=== PATIENT | female | born 1955 | race Caucasian/White ===

== ENCOUNTER → 2017-08-28 10:42 | Outpatient (CLI) | payer OTHER, SELFPAY ==
[2017-08-28 12:20] LABS: Alanine Aminotransferase 13 IU/L (9-52); Albumin 4.5 g/dL (3.5-5.0); Albumin Globulin Ratio 1.4 (1.0-2.8); Alkaline Phosphatase 85 U/L (38-126); Aspartate Aminotransferase 22 IU/L (14-36); BUN Creatinine Ratio 18.8 (6-22); Bilirubin Total 0.9 mg/dL (0.2-1.3); Blood Urea Nitrogen 15 mg/dL (7-17); Calcium 9.3 mg/dL (8.4-10.2); Carbon Dioxide 28 mmol/L (22-32); Chloride 102 mmol/L (98-107); Estimated Glomerular Filt Rate > 60.0 mL/min (>60); Globulin 3.2 g/dL (1.7-4.1); Glucose 93 mg/dL (80-110); HEMOLYSIS < 15 (0-50); Potassium 4.2 mmol/L (3.4-5.1); Sodium 141 mmol/L (137-145); Total Protein 7.7 g/dL (6.3-8.2)
[2017-08-28 12:35] LABS: Free T4, Direct Thyroxine 1.74 ng/dL (0.78-2.19)
[2017-08-28 12:49] LABS: Thyroid Stimulating Hormone 0.15 uIU/mL (0.47-4.68)
== END ==
PROVIDERS: Visit Provider Physician Assistant
DX: I10 Essential (primary) hypertension (principal); E78.2 Mixed hyperlipidemia; E03.9 Hypothyroidism, unspecified
CPT/HCPCS: 36415; 80053; 84439; 84443

== ENCOUNTER → 2017-10-03 09:24 | Outpatient (CLI) | payer OTHER, SELFPAY ==
--- NOTE | 2017-10-03 | DI.MG.S_ITS ---
BILATERAL DIGITAL SCREENING MAMMOGRAM 3D/2D WITH CAD: 10/03/2017 CLINICAL: Routine screening. Family history of breast cancer. Comparison is made to exams dated: 08/29/2016 mammogram, 08/11/2015 mammogram, and 08/13/2013 mammogram - [facility]. There are scattered fibroglandular elements in both breasts. Current study was also evaluated with a Computer Aided Detection (CAD) system. No significant masses, calcifications, or other findings are seen in either breast. There has been no significant interval change. IMPRESSION: NEGATIVE There is no mammographic evidence of malignancy. A 1 year screening mammogram is recommended. This exam was interpreted at Station ID: [id number]. NOTE: For mammograms, a report in lay terms will be sent to the patient. Approximately 15% of breast malignancies will not be visualized mammographically. In the management of a palpable breast mass, a negative mammogram must not discourage biopsy of a clinically suspicious lesion. Electronically Signed By: Yulissa dong/kameron:10/03/2017 11:06:46 letter sent: Normal Exam ACR BI-RADS Category 1: Negative 3341F
== END ==
PROVIDERS: Visit Provider Physician Assistant
DX: Z12.31 Encounter for screening mammogram for malignant neoplasm of breast (principal); Z80.3 Family history of malignant neoplasm of breast
CPT/HCPCS: 77063; 77067

== ENCOUNTER → 2017-10-14 11:20 | Outpatient (CLI) | payer OTHER, SELFPAY ==
[2017-10-14 13:16] LABS: Thyroid Stimulating Hormone 2.17 uIU/mL (0.47-4.68)
== END ==
PROVIDERS: Visit Provider Physician Assistant
DX: E03.9 Hypothyroidism, unspecified (principal); R79.89 Other specified abnormal findings of blood chemistry
CPT/HCPCS: 36415; 84443

== ENCOUNTER → 2018-12-01 09:32 | Outpatient (CLI) | payer OTHER, MEDICAID, SELFPAY ==
[2018-12-01 11:10] LABS: Albumin 4.6 g/dL (3.5-5.0); Albumin Globulin Ratio 1.4 (1.0-2.8); Alkaline Phosphatase 88 U/L (38-126); Aspartate Aminotransferase 24 IU/L (14-36); BUN Creatinine Ratio 17.5 (6-22); Blood Urea Nitrogen 14 mg/dL (7-17); Calcium 9.2 mg/dL (8.4-10.2); Carbon Dioxide 29 mmol/L (22-32); Chloride 102 mmol/L (98-107); Cholesterol 258 mg/dL (140-199); Creatinine Urine Random 233.1 mg/dL; Estimated Glomerular Filt Rate > 60.0 mL/min (>60); Globulin 3.2 g/dL (1.7-4.1); Glucose 94 mg/dL (80-110); HDL Cholesterol 48 mg/dL (40-60); HEMOLYSIS < 15 (0-50); LDL Cholesterol Calculated 175 mg/dL (<100); Potassium 4.3 mmol/L (3.4-5.1); Sodium 140 mmol/L (137-145); Total Protein 7.8 g/dL (6.3-8.2); Triglycerides 174 mg/dL (35-150)
[2018-12-01 11:14] LABS: Microalbumi Creatinin Ratio Ur 10.2 ug/mg CR (<30); Microalbumin Urine Random 2.4 mg/dL (0-1.6)
[2018-12-01 11:20] LABS: Alanine Aminotransferase 13 IU/L (9-52)
[2018-12-01 11:37] LABS: Thyroid Stimulating Hormone 7.72 uIU/mL (0.47-4.68)
== END ==
PROVIDERS: PCP Physician Assistant; Visit Provider Physician Assistant
DX: E03.9 Hypothyroidism, unspecified (principal); E78.2 Mixed hyperlipidemia; R03.0 Elevated blood-pressure reading, without diagnosis of hypertension
CPT/HCPCS: 36415; 80053; 80061; 82043; 82570; 84443

== ENCOUNTER → 2018-12-18 09:36 | Outpatient (CLI) | payer OTHER, MEDICAID, SELFPAY ==
--- NOTE | 2018-12-18 09:38 | DI.MG.S_ITS ---
BILATERAL DIGITAL SCREENING MAMMOGRAM 3D/2D WITH CAD: 12/18/2018 CLINICAL: Annual screening mammogram. Comparison is made to exams dated: 10/03/2017 mammogram, 08/29/2016 mammogram, 08/11/2015 mammogram, 08/13/2013 mammogram, 05/09/2012 mammogram, and 01/09/2011 mammogram - [facility]. There are scattered fibroglandular elements in both breasts. Current study was also evaluated with a Computer Aided Detection (CAD) system. There is an oval asymmetry in the right breast posterior depth superior region seen on the mediolateral oblique view only. There is a partially imaged irregular asymmetry in the left breast posterior depth medial region seen on the craniocaudal view only. This may represent accessory chest muscle tissue but is incompletely imaged and not seen on prior comparison exams. No other significant masses or calcifications are seen in either breast. IMPRESSION: INCOMPLETE: NEEDS ADDITIONAL IMAGING EVALUATION 1) The oval asymmetry in the right breast posterior depth superior region seen on the mediolateral oblique view only is indeterminate. Additional views with possible ultrasound are recommended. 2) The irregular asymmetry in the left breast posterior depth medial region seen on the craniocaudal view only is indeterminate. Additional views with possible ultrasound are recommended. This exam was interpreted at Station ID: [id number]. NOTE: For mammograms, a report in lay terms will be sent to the patient. Approximately 15% of breast malignancies will not be visualized mammographically. In the management of a palpable breast mass, a negative mammogram must not discourage biopsy of a clinically suspicious lesion. Electronically Signed By: Vishal Diego M.D. ecl/:12/24/2018 09:49:45 letter sent: Additional Imaging Needed ACR BI-RADS Category 0: Incomplete 3340F
== END ==
PROVIDERS: PCP Physician Assistant; Visit Provider Physician Assistant
DX: Z12.31 Encounter for screening mammogram for malignant neoplasm of breast (principal)
CPT/HCPCS: 77063; 77067

== ENCOUNTER → 2019-01-14 13:09 | Outpatient (CLI) | payer OTHER, MEDICAID, SELFPAY ==
--- NOTE | 2019-01-14 13:10 | DI.MG.S_ITS ---
BILATERAL DIGITAL DIAGNOSTIC MAMMOGRAM 3D/2D: 01/14/2019 CLINICAL: Additional evaluation requested from prior study. Comparison is made to exams dated: 12/18/2018 mammogram, 10/03/2017 mammogram, and 08/29/2016 mammogram - [facility]. There are scattered fibroglandular elements in both breasts. There is an oval asymmetry in the right breast posterior depth superior region seen on the mediolateral oblique view only which on today's additional imaging demonstrated a central fatty hilum and feeding vessel, consistent with a benign lymph node. The asymmetry in the left breast posterior depth medial region seen on the craniocaudal view only is no longer seen. This is consistent with summation artifact. No other significant masses or calcifications are seen in either breast. IMPRESSION: The oval asymmetry in the right breast posterior depth superior region is consistent with a benign lymph node. The previously described posterior depth left breast craniocaudal-only view asymmetry disperses with additional views and is consistent with summation artifact. There is no mammographic evidence of malignancy. A 1 year screening mammogram is recommended. This exam was interpreted at Station ID: [id number]. NOTE: For mammograms, a report in lay terms will be sent to the patient. Approximately 15% of breast malignancies will not be visualized mammographically. In the management of a palpable breast mass, a negative mammogram must not discourage biopsy of a clinically suspicious lesion. Electronically Signed By: Walter Naranjo M.D. aty/:01/14/2019 14:23:58 letter sent: Normal Exam ACR BI-RADS Category 2: Benign Finding(s) 3342F
--- NOTE | 2019-01-14 13:10 | DI.RAD.S_ITS ---
PROCEDURE: XR SHOULDER RT MIN 2V INDICATIONS: Pain with adduction in anterior shoulder - hx of fall >10yrs TECHNIQUE: 3 views of the shoulder were acquired. COMPARISON: [facility], , SHOULDER MINIMUM 2VIEW RIGHT, 11/25/2008, 14:15. FINDINGS: Bones: No fractures or dislocations. No suspicious bony lesions. Visualized ribs appear intact. Soft tissues: No suspicious soft tissue calcifications. 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 Dictated by: Jamel Hernandez M.D. on 01/14/2019 at 13:29 Approved by: Jamel Hernandez M.D. on 01/14/2019 at 13:29
== END ==
PROVIDERS: PCP Physician Assistant; Visit Provider Physician Assistant
DX: R92.8 Other abnormal and inconclusive findings on diagnostic imaging of breast (principal); N64.89 Other specified disorders of breast; M25.511 Pain in right shoulder; M19.011 Primary osteoarthritis, right shoulder
CPT/HCPCS: 73030; 77066; G0279

== ENCOUNTER → 2019-01-20 10:19 | Outpatient (CLI) | payer OTHER, MEDICAID, SELFPAY ==
[2019-01-20 11:20] LABS: Cholesterol 228 mg/dL (140-199); HDL Cholesterol 35 mg/dL (40-60); LDL Cholesterol Calculated 139 mg/dL (<100); Triglycerides 269 mg/dL (35-150)
[2019-01-20 12:03] LABS: Thyroid Stimulating Hormone 1.76 uIU/mL (0.47-4.68)
== END ==
PROVIDERS: PCP Physician Assistant; Visit Provider Physician Assistant
DX: E03.9 Hypothyroidism, unspecified (principal); E78.2 Mixed hyperlipidemia; R79.89 Other specified abnormal findings of blood chemistry
CPT/HCPCS: 36415; 80061; 84443

== ENCOUNTER → 2019-04-06 09:05 | Outpatient (CLI) | payer OTHER, MEDICAID, SELFPAY ==
--- NOTE | 2019-04-06 09:09 | DI.RAD.S_ITS ---
PROCEDURE: FL BARIUM SWALLOW INDICATIONS: Dysphonia COMPARISON: None. FINDINGS: Function: There is decreased esophageal peristalsis. Delayed esophageal clearance No elicited gastroesophageal reflux. Morphology: Air-contrast images demonstrate normal mucosal morphology. Single contrast views show no esophageal strictures, extrinsic mass effects, or diverticula. Limited images of the stomach demonstrate normal appearance. IMPRESSION: Esophageal dysmotility Dictated by: Manuel Pulido M.D. on 04/06/2019 at 10:23 Approved by: Manuel Pulido M.D. on 04/06/2019 at 10:24
== END ==
PROVIDERS: PCP Physician Assistant; Referring Provider Otolaryngology; Visit Provider Otolaryngology
DX: R49.0 Dysphonia (principal); R13.19 Other dysphagia; K22.4 Dyskinesia of esophagus
CPT/HCPCS: 74220

== ENCOUNTER → 2019-09-22 13:50 | Outpatient (CLI) | payer OTHER, MEDICAID, SELFPAY ==
[2019-09-22 15:54] LABS: Free T4, Direct Thyroxine 1.37 ng/dL (0.78-2.19)
[2019-09-22 16:08] LABS: Thyroid Stimulating Hormone 1.04 uIU/mL (0.47-4.68)
== END ==
PROVIDERS: PCP Nurse Practitioner Family; Referring Provider Nurse Practitioner Family; Visit Provider Nurse Practitioner Family
DX: E03.9 Hypothyroidism, unspecified (principal)
CPT/HCPCS: 36415; 84439; 84443

== ENCOUNTER → 2020-12-30 08:32 | Outpatient (CLI) | payer OTHER, MEDICAID, SELFPAY ==
[2020-12-30 09:07] LABS: Hematocrit 41.3 % (36-46); Hemoglobin 13.8 g/dL (12.0-16.0); Mean Corpuscular HGB Conc 33.3 % (30-36); Mean Corpuscular Hemoglobin 29.6 PG (26-34); Platelet Count 248 X10^3/uL (150-400); Red Blood Cell Count 4.64 X10^6/uL (4.0-5.2); Red Cell Distribution Width 13.6 % (11.6-14.8); White Blood Cell Count 4.4 X10^3/uL (4.5-11.0)
[2020-12-30 09:47] LABS: Alanine Aminotransferase 11 IU/L (<35); Albumin 4.5 g/dL (3.5-5.0); Albumin Globulin Ratio 1.4 (1.0-2.8); Alkaline Phosphatase 99 U/L (38-126); Aspartate Aminotransferase 28 IU/L (14-36); Bilirubin Total 0.9 mg/dL (0.2-1.3); Blood Urea Nitrogen 17 mg/dL (7-17); Carbon Dioxide 29 mmol/L (22-32); Chloride 102 mmol/L (98-107); Cholesterol 249 mg/dL (140-199); Estimated Glomerular Filt Rate > 60.0 mL/min (>60); Globulin 3.2 g/dL (1.7-4.1); Glucose 97 mg/dL (80-110); HDL Cholesterol 49 mg/dL (40-60); HEMOLYSIS < 15 (0-50); LDL Cholesterol Calculated 170 mg/dL (<100); Potassium 4.1 mmol/L (3.4-5.1); Sodium 139 mmol/L (137-145); Total Protein 7.7 g/dL (6.3-8.2); Triglycerides 152 mg/dL (35-150)
[2020-12-30 10:19] LABS: Thyroid Stimulating Hormone 0.819 uIU/mL (0.47-4.68)
== END ==
PROVIDERS: PCP Nurse Practitioner Family; Referring Provider Nurse Practitioner Family; Visit Provider Nurse Practitioner Family
DX: E03.9 Hypothyroidism, unspecified (principal); E78.2 Mixed hyperlipidemia
CPT/HCPCS: 36415; 80053; 80061; 84443; 85027

== ENCOUNTER → 2021-05-03 07:49 | Outpatient (CLI) | payer OTHER, MEDICAID, SELFPAY ==
[2021-05-03 08:49] LABS: Cholesterol 203 mg/dL (140-199); HDL Cholesterol 52 mg/dL (40-60); LDL Cholesterol Calculated 127 mg/dL (<100); Triglycerides 122 mg/dL (35-150)
== END ==
PROVIDERS: PCP Nurse Practitioner Family; Referring Provider Nurse Practitioner Family; Visit Provider Nurse Practitioner Family
DX: E78.2 Mixed hyperlipidemia (principal)
CPT/HCPCS: 36415; 80061

== ENCOUNTER → 2021-11-06 07:48 | Outpatient (CLI) | payer MEDICARE, OTHER, SELFPAY ==
[2021-11-06 08:02] LABS: Hematocrit 42.5 % (36-46); Hemoglobin 14.3 g/dL (12.0-16.0); Mean Corpuscular HGB Conc 33.7 % (30-36); Mean Corpuscular Volume 89.3 fL (80-100); Platelet Count 230 X10^3/uL (150-400); Red Blood Cell Count 4.76 X10^6/uL (4.0-5.2); Red Cell Distribution Width 13.1 % (11.6-14.8); White Blood Cell Count 3.7 X10^3/uL (4.5-11.0)
[2021-11-06 08:18] LABS: Alanine Aminotransferase 9 IU/L (<35); Albumin 4.5 g/dL (3.5-5.0); Albumin Globulin Ratio 1.3 (1.0-2.8); Alkaline Phosphatase 81 U/L (38-126); Aspartate Aminotransferase 22 IU/L (14-36); Bilirubin Total 1.2 mg/dL (0.2-1.3); Blood Urea Nitrogen 16 mg/dL (7-17); Calcium 9.1 mg/dL (8.4-10.2); Carbon Dioxide 28 mmol/L (22-32); Chloride 101 mmol/L (98-107); Cholesterol 246 mg/dL (140-199); Estimated Glomerular Filt Rate > 60 mL/min (>60); Globulin 3.4 g/dL (1.7-4.1); Glucose 110 mg/dL (80-110); HDL Cholesterol 56 mg/dL (40-60); HEMOLYSIS < 15 (0-50); LDL Cholesterol Calculated 161 mg/dL (<100); Potassium 3.8 mmol/L (3.4-5.1); Sodium 139 mmol/L (137-145); Total Protein 7.9 g/dL (6.3-8.2); Triglycerides 145 mg/dL (35-150)
[2021-11-06 10:29] LABS: Free T4, Direct Thyroxine 1.75 ng/dL (0.78-2.19)
[2021-11-06 10:43] LABS: Thyroid Stimulating Hormone 0.826 uIU/mL (0.47-4.68)
== END ==
PROVIDERS: PCP Nurse Practitioner Family; Referring Provider Nurse Practitioner Family; Visit Provider Nurse Practitioner Family
DX: E03.9 Hypothyroidism, unspecified (principal); E78.2 Mixed hyperlipidemia; Z00.00 Encounter for general adult medical examination without abnormal findings
CPT/HCPCS: 36415; 80053; 80061; 84439; 84443; 85027

== ENCOUNTER → 2021-11-13 15:04 | Outpatient (CLI) | payer MEDICARE, OTHER, SELFPAY ==
--- NOTE | 2021-11-13 15:06 | DI.MG.S_ITS ---
BILATERAL DIGITAL SCREENING MAMMOGRAM 3D/2D WITH CAD: 11/13/2021 CLINICAL: Routine screening. Comparison is made to exams dated: 01/14/2019 mammogram, 12/18/2018 mammogram, and 10/03/2017 mammogram - [facility]. Both breasts are heterogeneously dense, which may obscure small masses (category c / 51-75% glandular tissue). Current study was also evaluated with a Computer Aided Detection (CAD) system. There is a benign calcification in the right breast. No significant masses, calcifications, or other findings are seen in either breast. There has been no significant interval change. IMPRESSION: BENIGN There is no mammographic evidence of malignancy. A 1 year screening mammogram is recommended. Based on the Tyrer Cuzick model (a risk assessment model) the patient's lifetime risk is 11.0% and her 10 year risk is 5.3%. According to the ACR, ACS, and NCCN guidelines, an annual breast MRI exam along with mammogram is recommended if the patient's lifetime risk is 20% or greater. This exam was interpreted at Station ID: [id number]. NOTE: For mammograms, a report in lay terms will be sent to the patient. Approximately 15% of breast malignancies will not be visualized mammographically. In the management of a palpable breast mass, a negative mammogram must not discourage biopsy of a clinically suspicious lesion. Electronically Signed By: Abner michelle/kameron:11/14/2021 07:58:11 letter sent: Normal Exam ACR BI-RADS Category 2: Benign Finding(s) 3342F
== END ==
PROVIDERS: PCP Nurse Practitioner; Referring Provider Nurse Practitioner; Visit Provider Nurse Practitioner
DX: Z12.31 Encounter for screening mammogram for malignant neoplasm of breast (principal)
CPT/HCPCS: 77063; 77067

== ENCOUNTER → 2022-08-31 07:38 | Outpatient (CLI) | payer MEDICARE, OTHER, SELFPAY ==
[2022-08-31 08:14] LABS: Add Manual Diff / Slide Review NO; Basophils Absolute Auto 0 /uL (0-100); Basophils Percent Auto 0.7 % (0-2); Eosinophils Absolute Auto 0 /uL (0-450); Eosinophils Percent Auto 0.6 % (2-4); Hematocrit 41.9 % (36-46); Hemoglobin 14.2 g/dL (12.0-16.0); Lymphocytes Absolute Auto 1000 /uL (1100-4500); Lymphocytes Percent Auto 26.2 % (25-40); Mean Corpuscular Hemoglobin 30.5 PG (26-34); Mean Corpuscular Volume 89.9 fL (80-100); Monocytes Absolute Auto 300 /uL (0-900); Monocytes Percent Auto 7.4 % (3-14); Neutrophils Absolute Auto 2600 /uL (1500-7000); Neutrophils Percent Auto 65.1 % (50-75); Platelet Count 261 X10^3/uL (150-400); Red Blood Cell Count 4.66 X10^6/uL (4.0-5.2)
[2022-08-31 08:44] LABS: Alanine Aminotransferase 12 IU/L (<35); Albumin 4.6 g/dL (3.5-5.0); Albumin Globulin Ratio 1.6 (1.0-2.8); Alkaline Phosphatase 62 U/L (38-126); Aspartate Aminotransferase 23 IU/L (14-36); BUN Creatinine Ratio 20.7 (6-22); Bilirubin Total 1.3 mg/dL (0.2-1.3); Blood Urea Nitrogen 17 mg/dL (7-17); Calcium 9.3 mg/dL (8.4-10.2); Carbon Dioxide 32 mmol/L (22-32); Chloride 99 mmol/L (98-107); Cholesterol 209 mg/dL (140-199); Estimated Glomerular Filt Rate > 60 mL/min (>60); Globulin 2.8 g/dL (1.7-4.1); Glucose 120 mg/dL (80-110); HDL Cholesterol 69 mg/dL (40-60); HEMOLYSIS < 15 (0-50); LDL Cholesterol Calculated 116 mg/dL (<100); Sodium 138 mmol/L (137-145); Total Protein 7.4 g/dL (6.3-8.2); Triglycerides 121 mg/dL (35-150)
[2022-08-31 09:14] LABS: Thyroid Stimulating Hormone 1.36 uIU/mL (0.47-4.68)
[2022-08-31 10:24] LABS: Creatinine Urine Random 58.9 mg/dL
[2022-08-31 10:28] LABS: Microalbumi Creatinin Ratio Ur 45.8 ug/mg CR (<30); Microalbumin Urine Random 2.7 mg/dL (0-1.6)
[2022-09-03 20:49] LABS: Hep C Virus Ab w/Reflex Quant NEGATIVE s/c (NEGATIVE)
== END ==
PROVIDERS: PCP Nurse Practitioner; Referring Provider Nurse Practitioner; Visit Provider Nurse Practitioner
DX: E03.9 Hypothyroidism, unspecified (principal); E78.2 Mixed hyperlipidemia; I10 Essential (primary) hypertension; R41.3 Other amnesia; R68.89 Other general symptoms and signs; Z79.899 Other long term (current) drug therapy; Z11.59 Encounter for screening for other viral diseases
CPT/HCPCS: 36415; 80053; 80061; 82043; 82570; 84443; 85025; 86803

== ENCOUNTER → 2022-09-03 12:13 | Outpatient (CLI) | payer MEDICARE, OTHER, SELFPAY ==
--- NOTE | 2022-09-03 12:14 | DI.CT.S_ITS ---
PROCEDURE: CT ANGIO HEAD AND NECK INDICATIONS: worsening memory troubles TECHNIQUE: Pre-contrast 4.5 mm thick sections acquired from the foramen magnum to the vertex. After the administration of intravenous contrast, 1 mm thick sections acquired from the aortic arch through the [place]. Post-contrast 4.5 mm thick sections then re-acquired from the foramen magnum to the vertex. 3-dimensional qkiimvz-ptkbhcbhd-eabpbwvljl (MIP) and/or volume rendering reformats were acquired of the central intracranial vasculature and neck separately. For radiation dose reduction, the following was used: automated exposure control, adjustment of mA and/or kV according to patient size. COMPARISON: None. FINDINGS: Image quality: Excellent. BRAIN: CSF spaces: Ventricles are normal in size and shape. Basal cisterns are patent. No extra-axial fluid collections. Brain: No midline shift. No intracranial bleeds or masses. May-white matter interface appears intact. Aypa-fb-jcqrbimf global volume loss. Hypoattenuation within the deep and periventricular white matter, nonspecific and likely representing chronic microvascular ischemic change. Skull and face: Calvarium and facial bones appear intact, without suspicious lesions. Orbits appear normal. Sinuses: Sinuses and mastoids are clear. HEAD CT ANGIOGRAPHY: Anterior circulation: Intracranial internal carotid arteries are normal in size and flow. Atherosclerotic vascular calcifications of the bilateral internal carotid arteries. The flow within the paired anterior cerebral arteries is normal and symmetric. The flow within the middle cerebral arteries is normal and symmetric. The anterior communicating artery is seen. No aneurysms are seen. Posterior circulation: Visualized portions of the vertebral arteries demonstrate normal caliber, and join to form a normal appearing basilar artery. Flow within the posterior cerebral arteries is normal and symmetric. No aneurysms are seen. NECK CT ANGIOGRAPHY: Carotid system: Atherosclerotic calcifications of the aortic arch. The great vessels demonstrate a conventional anatomy as they arise from the aortic arch. The origins of the common carotid arteries appear patent. The common carotid arteries demonstrate normal caliber and courses. The bifurcation regions are both widely patent. The internal carotid arteries demonstrate normal calibers with some tortuosity. Posterior circulation: The origins of the vertebral arteries both appear widely patent. 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 The more superior extracranial portions of both vertebral arteries also demonstrate normal courses and calibers. Right dominant vertebral artery. They join to form a normal appearing basilar artery. Soft tissues: Visualized neck soft tissues demonstrate no suspicious abnormalities. Bones: No suspicious bony lesions. Visualized cervical spine appears normally aligned. Straightening of the normal cervical lordosis. Degenerative changes of the cervical spine. IMPRESSION: 1. CT head: No acute intracranial abnormalities. Mild to moderate global volume loss and chronic microvascular ischemic change. 2. CT angiography: Mild atherosclerotic vascular calcifications. No high-grade stenosis, occlusion, aneurysm or AVM. Any quantitative measurements of stenosis were performed using NASCET criteria. Dictated by: Gustavo Landry M.D. on 09/03/2022 at 14:09 Approved by: Gustavo Landry M.D. on 09/03/2022 at 14:17
== END ==
PROVIDERS: PCP Nurse Practitioner; Referring Provider Nurse Practitioner; Visit Provider Nurse Practitioner
DX: I70.0 Atherosclerosis of aorta (principal); R41.3 Other amnesia; R68.89 Other general symptoms and signs
CPT/HCPCS: 70496; 70498; Q9967

== ENCOUNTER 2022-09-28 13:25 | Day surgery (SDC) | payer MEDICARE, OTHER, SELFPAY ==
--- NOTE | 2022-09-28 | PATH_ITS ---
[facility] Accession Number: [id number] No. of containers..03 Tissue . 01 Material submitted: . PART A: cecum - LARGE SESSILE CECAL POLYP PART B: cecum - SMALL CECAL POLYP PART C: colon - ASCENDING POLYP . 01 Diagnosis: A. Cecum, Large Sessile Polyp: Sessile serrated adenoma. . B. Cecum, Small Polyp: Benign lymphoid aggregate. . C. Ascending Colon, Polyp: Sessile serrated adenoma. V 10/10/2022 1726 Local . 01 Electronically signed: . Teetee Braden MD, Pathologist NPI- [id number] . 01 Gross description: . Part A: LARGE SESSILE CECAL POLYP: Received in formalin is 3 fragment(s) of campbell, soft tissue measuring 1.8 x 1.1 x 0.2 cm to 0.7 x 0.6 x 0.2 cm submitted entirely in 1 cassette(s) Part B: SMALL CECAL POLYP: Received in formalin is 1 fragment(s) of campbell, soft tissue measuring 0.3 x 0.3 x 0.2 cm submitted entirely in 1 cassette(s) Part C: ASCENDING POLYP: Received in formalin is 2 fragment(s) of campbell, soft tissue measuring 0.3 x 0.2 x 0.2 cm to 0.1 x 0.1 x 0.1 cm submitted entirely in 1 cassette(s) /AAY 10/04/2022 1049 Local . 01 Pathologist provided ICD-10: D12.0, D12.2 . 01 CPT . 414496, 878783, [id number] Performed at: [facility] [address] [place] [address] [address] [facility], [place], [place] [id number] MD Erik Moreno MD Phone: [phone]
[2022-09-28 13:35] VITALS: BP 156/95; PULSE 112; RESP 17; TEMP 37.1; O2SAT 100; BMI 26.5
[2022-09-28] MEDS: LACTATED RINGERS 1,000 ML 125 ML IV (13:55)
--- NOTE | 2022-09-28 15:15 | P.HP_ITS ---
History of Present Illness History of Present Illness Date Patient Seen: 09/28/22 Time Patient Seen: 15:15 Chief complaint: [facility] Narrative: 67-year-old female who presents today for a colonoscopy. She states her last colonoscopy was about 6 months ago done in [place], she understood there were a few polyps. Her is with her today and he had his done here at [place] on the and therefore, he asked to her get scheduled today. They are Jehovah's witnesses. She has had a colon resection for some sort of cancer around the colon that was done over 10 years ago. The details of the type of polyp and or resection are not clear and she or her do not really know the details. I was able to review a scanned copy of her last colonoscopy report from [facility] in [place]. It was done by Dr. Jason Mann on 03/22/22. There were 4 polyps total that were seen during this exam. There was a 4 mm polyp in the descending colon well as a 2nd 4 mm polyp in the transverse colon. Were significantly however there were 20 mm polyp that was removed in the transverse colon with the technique of endoscopic mucosal resection and a 2nd similar polyp of 24 mm in size that was removed using the same technique in a piecemeal fashion though the endoscopist did feel that he had completely excised it. This is the reason for the recommendation of a six-month follow-up. She endorses no family history of colon cancer and no concerning symptoms. [facility] Medical History Colon polyps (Unknown) Endometriosis (Unknown) Hyperlipemia (Unknown) Hypertension (Unknown) Hypothyroidism (Unknown) Surgical History History of thyroid surgery (Unknown) Status post hysterectomy Family History Father High cholesterol Hypertension Sister Age: 59 Hyperlipidemia Mother Cancer Social History household members: spouse Smoking Status: Never smoker second hand exposure: No alcohol intake: current substance use type: does not use Meds Home Medications and Allergies Home Medications Medication Instructions Recorded Confirmed Type levothyroxine 100 mcg tablet 100 mcg PO DAILY #90 tabs 11/06/21 09/28/22 Rx Allergies Allergy/AdvReac Type Severity Reaction Status Date / Time bartlett Allergy Redness of Verified 09/28/22 13:54 Skin Exam Vital Signs (past 8 hours): - 09/28/22 13:35 Temperature 98.7 F Pulse Rate 112 H Respiratory Rate 17 Blood Pressure 156/95 H Pulse Oximetry 100 Oxygen Delivery Method Room Air Oxygen Delivery Method Room Air Const General: cooperative, healthy appearing and comfortable Nutritional Appearance: thin HENMT Head: normal to inspection Eyes General: appearance normal, both eyes and all related structures Resp Effort & Inspection: normal respiratory effort and able to speak in complete sentences GI Palpation: soft and No tender Extrem General: normal to inspection Assessment & Plan Assessment and plan (1) Sessile serrated polyp of colon: Problem details: X2 of a large size 20 mm and 24 mm. Piecemeal resection using endoscopic mucosal resection on 03/22/2022 Status: Acute Assessment & Plan narrative: Because of the size and number of these polyps as well as the piecemeal resection of the 24 mm polyp in the transverse colon the previous endoscopist recommended 6 month follow-up. The patient's have decided to come to [facility] they felt it was more convenient rather than follow-up with the group in [place]. 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 Today I discussed them risks benefits and alternatives of colonoscopy including but not limited to perforation of the colon and an incomplete exam she fully understands these risks and would like to proceed. Her is at the bedside with her and understands as well.
[2022-09-28 17:13] VITALS: BP 98/55; PULSE 72; RESP 14; TEMP 36.1; O2SAT 96
[2022-09-28 17:18] VITALS: BP 93/61; PULSE 69; RESP 12; O2SAT 97
[2022-09-28 17:24] VITALS: BP 109/72; PULSE 85; RESP 16; O2SAT 100
[2022-09-28 17:28] VITALS: BP 135/85; PULSE 87; RESP 12; TEMP 36.8; O2SAT 100
[2022-09-28 17:41] VITALS: BP 147/90; PULSE 75; RESP 16; O2SAT 99
--- NOTE | 2022-09-28 17:45 | P.OP.COLON_ITS ---
Operative Date/Time/Diagnoses Date of procedure: 09/28/22 Time of procedure: 17:45 Pre-op diagnosis: Follow-up for sessile serrated polyp removal x2 of sizes 20 mm and 24 mm 1 was removed piecemeal 6 months ago at [facility] in [place]. It was recommended that she have a six-month follow-up colonoscopy because of this. Post-op diagnosis: other (Two additional new sessile serrated polyps of similar size is approximately 2 cm both. One was found in the cecum and was completely excised and a 2nd was found in the transverse colon this 1 was not excised.) Procedure & Clinicians Study performed: Colonoscopy and biopsy with endoscopic mucosal resection Same procedure as scheduled: Yes Indications: Sessile serrated polyps of size is 20mm and 24 mm some were excised piecemeal and six-month follow-up was recommended Surgeon: Ela Etienne Procedure Notes Procedure in detail: Patient was taken to the endoscopy suite and placed in a left lateral decubitus position. A time-out was performed. With the help of anesthesiologist c onscious sedation was induced and monitored throughout the case. A digital rectal exam was performed and there were no masses or strictures. There were multiple external hemorrhoids. The colonoscope was introduced into the anal canal and advanced through to the cecum. A photograph of the appendiceal orifice was obtained. The bowel prep was good Quinn bowel prep score of 2, but there was a lot of fibrinous particles that did obscure some of the view. The scope was then withdrawn for a total of 45 minutes. A very small cecal polyp was seen and removed with the biopsy forceps. Before withdrawing completely out of the cecum another large probably at least 2 cm incise polyp was seen in a fold of the cecum. Saline was injected underneath this polyp that was sessile and shape to flattened it out and pump it up in order to that it could be removed with a snare. Photographs before and after the resection were obtained. This was sent to pathology. The scope was then further withdrawn and there was a small approximately 4 mm polyp in the ascending colon that was removed with the biopsy forceps. Further withdrawal revealed 2 large scars encountered in the transverse colon. These were both photographed. Finally there was a 2nd large at least 2 cm sessile polyp seen in the transverse colon; this was photographed and an attempt to snare the area and remove it was made. Least 10 or 15 minutes was spent on this endeavor and was found difficult due to the location of this lesion on a fold just proximal to a curve within the transverse colon. After 15 minutes the scope was withdrawn inadvertently and could not be returned to that site easily after several attempts were then made to return to that site in excess of 30 minutes. Finally, the scope was then withdrawn furthe r leaving this sessile polyp in place. The scope was then retroflexed and a photograph of the internal hemorrhoidal piles was obtained. Findings: polyp(s) (Two large sessile polyps in addition to scars from previously resected similar lesions from 6 months earlier. There was 1 small cecal polyp as well) Specimen(s): other (1. Large sessile cecal polyp 2. Small cecal polyp 3. Ascending polyp. ) Post-procedure Recommendations: Other recommendation(s) (If patient is able to return for c olonoscopy next week I can make a 2nd attempt to remove this polyp. Alternatively I can offer to send her back to [facility] for another colonoscopy as soon as possible.) Disposition: PACU
== END 2022-09-28 18:25 | disposition home or self-care (01) ==
PROVIDERS: PCP Nurse Practitioner; Referring Provider Surgery; Visit Provider Surgery
PROC: 0DJD8ZZ Inspection of Lower Intestinal Tract, Via Natural or Artificial Opening Endoscopic (ICD-10-PCS; CPT 45378; principal; 2022-09-28 14:15)
DX: Z12.11 Encounter for screening for malignant neoplasm of colon (principal); Z86.010 Personal history of colon polyps; K64.4 Residual hemorrhoidal skin tags; D12.2 Benign neoplasm of ascending colon; D12.0 Benign neoplasm of cecum
CPT/HCPCS: 45385; 45381; 45380; J2250; J2704; J3010

== ENCOUNTER → 2023-04-13 08:31 | Outpatient (CLI) | payer MEDICARE, OTHER, SELFPAY ==
[2023-04-13 09:35] LABS: Hemoglobin A1C% w Est Avg Glu 5.5 % (4.0-6.0)
[2023-04-13 09:42] LABS: Alanine Aminotransferase 9 IU/L (<35); Albumin 4.7 g/dL (3.5-5.0); Albumin Globulin Ratio 1.5 (1.0-2.8); Alkaline Phosphatase 55 U/L (38-126); Aspartate Aminotransferase 22 IU/L (14-36); Bilirubin Total 1.3 mg/dL (0.2-1.3); Blood Urea Nitrogen 17 mg/dL (7-17); Calcium 9.4 mg/dL (8.4-10.2); Carbon Dioxide 31 mmol/L (22-32); Chloride 101 mmol/L (98-107); Cholesterol 243 mg/dL (140-199); Estimated Glomerular Filt Rate > 60 mL/min (>60); Globulin 3.2 g/dL (1.7-4.1); Glucose 110 mg/dL (80-110); HDL Cholesterol 64 mg/dL (40-60); HEMOLYSIS < 15 (0-50); LDL Cholesterol Calculated 145 mg/dL (<100); Potassium 3.9 mmol/L (3.4-5.1); Sodium 139 mmol/L (137-145); Total Protein 7.9 g/dL (6.3-8.2); Triglycerides 168 mg/dL (35-150)
[2023-04-13 10:30] LABS: Creatinine Urine Random 86.7 mg/dL
[2023-04-13 10:34] LABS: Microalbumi Creatinin Ratio Ur 124.5 ug/mg CR (<30); Microalbumin Urine Random 10.8 mg/dL (0-1.6)
== END ==
PROVIDERS: PCP Nurse Practitioner; Referring Provider Family Medicine; Visit Provider Family Medicine
DX: R80.9 Proteinuria, unspecified (principal); E78.2 Mixed hyperlipidemia; I10 Essential (primary) hypertension; R73.9 Hyperglycemia, unspecified
CPT/HCPCS: 80053; 80061; 82043; 82570; 83036

== ENCOUNTER → 2023-08-07 11:35 | Outpatient (CLI) | payer MEDICARE, OTHER, SELFPAY ==
--- NOTE | 2023-08-07 11:38 | DI.RAD.S_ITS ---
PROCEDURE: XR HIP W PEL IF DONE LT 2V INDICATIONS: Left hip pain TECHNIQUE: AP pelvis with lateral view(s) of the left hip(s). COMPARISON: None. FINDINGS: Bones: No fractures or dislocations. Symmetric appearing mild bilateral hip joint osteoarthritis with superior joint space narrowing and subchondral sclerosis. No avascular necrosis of femoral head. Pelvic ring appears intact. No suspicious bony lesions. Degenerative disc disease in visualized lower lumbar spine is seen. Soft tissues: The visualized bowel gas pattern is normal. No suspicious soft tissue calcifications. IMPRESSION: No acute pelvic or hip fracture. No hip dislocation. Symmetric appearing mild bilateral hip joint osteoarthritis. No evidence of avascular necrosis. Dictated by: Peter Negro M.D. on 08/07/2023 at 17:09 Approved by: Peter Negro M.D. on 08/07/2023 at 17:10
--- NOTE | 2023-08-07 11:38 | DI.RAD.S_ITS ---
PROCEDURE: XR FEMUR LT MIN 2V INDICATIONS: left hip leg pain TECHNIQUE: 4 views of the femur were acquired. COMPARISON: None. FINDINGS: Bones: No fractures or dislocations. Left hip joint osteoarthritic changes are seen with joint space narrowing and subchondral sclerosis. No evidence of avascular necrosis of femoral head. No suspicious bony lesions. Soft tissues: No suspicious soft tissue calcifications or masses. IMPRESSION: No left femoral fracture or dislocation. Mild left hip joint osteoarthritis. No evidence of avascular necrosis. No gross soft tissue abnormalities. Dictated by: Peter Negro M.D. on 08/07/2023 at 17:08 Approved by: Peter Negro M.D. on 08/07/2023 at 17:09
[2023-08-07 12:42] LABS: Appearance Urine UA CLEAR; Bilirubin Urine UA NEGATIVE (NEGATIVE); Color Urine UA YELLOW; Glucose Urine UA NEGATIVE (Negative); Ketones Urine UA NEGATIVE (NEGATIVE); Leukocyte Esterase Urine UA NEGATIVE (NEGATIVE); Nitrite Urine UA NEGATIVE (Negative); Occult Blood Urine UA NEGATIVE (Negative); Protein Urine UA TRACE (Negative); Specific Gravity Urine UA 1.025 (1.000-1.035); Urobilinogen Urine UA 0.2 E.U./dL (0.2)
[2023-08-07 12:43] LABS: pH Urine UA 5.5 (4.5-8.0)
[2023-08-07 12:55] LABS: Bacteria Urine Occasional (0-1); Calcium Oxalate Crystals Urine Moderate; Culture Indicated Urine Cult Not Indicated; RBC Urine 0-1/HPF (0-5/HPF); Squamous Epithelial Cell Urine 0-1 /HPF (0-5/HPF); Urine Volume 10mL (spun); WBC Urine 0-1/HPF (0-5/HPF)
== END ==
PROVIDERS: PCP Nurse Practitioner; Referring Provider Nurse Practitioner; Visit Provider Nurse Practitioner
DX: M25.552 Pain in left hip (principal); M79.605 Pain in left leg; R35.0 Frequency of micturition
CPT/HCPCS: 73502; 73552; 81001

== ENCOUNTER → 2023-08-20 09:28 | Outpatient (CLI) | payer MEDICARE, OTHER, SELFPAY ==
--- NOTE | 2023-08-20 09:31 | DI.CT.S_ITS ---
PROCEDURE: CT KIDNEY URETER BLADDER (KUB) INDICATIONS: Nocturia, calcium oxalate crystals on UA TECHNIQUE: Axial sections were acquired from the lung bases to the pubic symphysis. Coronal and sagittal reformats were performed. For radiation dose reduction, the following was used: automated exposure control, adjustment of mA and/or kV according to patient size. COMPARISON: None. FINDINGS: Image quality: Diagnostic. Lower Chest: No significant findings. URINARY: Right Kidney: There is a 5 mm nonobstructing right renal stone measuring approximately 600 Hounsfield units. No hydronephrosis. No perinephric stranding. Right Ureter: No hydroureter. Left Kidney: No stones or hydronephrosis. Left Ureter: No hydroureter. Bladder: Normal wall thickness. No stones. ABDOMEN: Liver: No contour-deforming solid mass. Gallbladder: No radiopaque gallstones or wall thickening. Biliary ducts: No biliary dilation. Pancreas: No ductal dilation. Spleen: Size is within normal limits. Adrenal Glands: No adrenal nodules. Stomach and Bowel: Normal colonic caliber, without significant wall thickening. Surgical clips in the right lower quadrant likely from prior appendectomy. Peritoneum: No abnormal intraperitoneal fluid. No free air. Ventral Wall: There is a fat-containing umbilical hernia without acute inflammation. Abdominal Nodes: No enlarged retroperitoneal or mesenteric lymph nodes. Vessels: Aorta and inferior vena cava are normal in size. PELVIS: Pelvic Organs: Unremarkable. Pelvic Nodes: Unremarkable. Miscellaneous: No inguinal hernias are seen. Bones: Visualized osseous structures appear intact without acute fracture or focal destructive lesion. No acute compression fractures of the imaged spine. Minimal grade 1 anterolisthesis of L5 on S1 likely related to severe bilateral facet arthropathy seen at this level. IMPRESSION: Nonobstructing 5 mm right renal calculus measuring approximately 600 Hounsfield units. Otherwise, no acute abnormalities identified in the abdomen or pelvis. Other chronic findings as above. Dictated by: Walter Naranjo M.D. on 08/20/2023 at 10:29 Approved by: Walter Naranjo M.D. on 08/20/2023 at 11:08
== END ==
PROVIDERS: PCP Nurse Practitioner; Referring Provider Nurse Practitioner; Visit Provider Nurse Practitioner
DX: N20.0 Calculus of kidney (principal); K42.9 Umbilical hernia without obstruction or gangrene; R35.1 Nocturia; R82.998 Other abnormal findings in urine
CPT/HCPCS: 74176

== ENCOUNTER → 2023-08-21 12:18 | Outpatient (CLI) | payer MEDICARE, OTHER, SELFPAY ==
[2023-08-21 13:15] LABS: Appearance Urine UA CLEAR; Bilirubin Urine UA NEGATIVE (NEGATIVE); Color Urine UA YELLOW; Glucose Urine UA NEGATIVE (Negative); Ketones Urine UA NEGATIVE (NEGATIVE); Leukocyte Esterase Urine UA NEGATIVE (NEGATIVE); Nitrite Urine UA NEGATIVE (Negative); Occult Blood Urine UA NEGATIVE (Negative); Protein Urine UA NEGATIVE (Negative); Specific Gravity Urine UA 1.025 (1.000-1.035)
[2023-08-21 13:18] LABS: pH Urine UA 5.5 (4.5-8.0)
[2023-08-21 13:28] LABS: Bacteria Urine Occasional (0-1); Calcium Oxalate Crystals Urine Moderate; Culture Indicated Urine Cult Not Indicated; RBC Urine 0-1/HPF (0-5/HPF); Squamous Epithelial Cell Urine 0-1 /HPF (0-5/HPF); Urine Volume 10mL (spun); WBC Urine 0-1/HPF (0-5/HPF)
== END ==
LOC: LAB 12:20
PROVIDERS: PCP Nurse Practitioner; Referring Provider Nurse Practitioner; Visit Provider Nurse Practitioner
DX: R35.1 Nocturia (principal)
CPT/HCPCS: 81001

== ENCOUNTER → 2023-10-17 15:17 | Outpatient (CLI) | payer MEDICARE, OTHER, SELFPAY ==
--- NOTE | 2023-10-17 15:19 | DI.RAD.S_ITS ---
PROCEDURE: XR KUB INDICATIONS: Follow-up right kidney stones TECHNIQUE: One view of the abdomen acquired. COMPARISON: [facility], CT, CT KIDNEY URETER BLADDER (KUB), 08/20/2023, 9:42. FINDINGS: Surgical changes and devices: Right pelvic clips are present. Bowel: Moderate fecal loading. Stool obscures evaluation. Soft tissues: 4 mm stone projects over the right renal fossa, likely similar to CT. Pelvic calcifications are probably phleboliths. Bones: Degenerative changes IMPRESSION: A 4 mm stone projecting over the right renal fossa, probably similar compared to August CT. Moderate fecal loading, which obscures evaluation Dictated by: Chay Monteiro M.D. on 10/18/2023 at 9:32 Approved by: Chay Monteiro M.D. on 10/18/2023 at 9:33
== END ==
PROVIDERS: PCP Nurse Practitioner; Referring Provider Urology; Visit Provider Urology
DX: N20.0 Calculus of kidney (principal); Z97.8 Presence of other specified devices; R31.29 Other microscopic hematuria
CPT/HCPCS: 51798; 74018; 81002; 99214

== ENCOUNTER → 2023-10-18 16:16 | Outpatient (CLI) | payer MEDICARE, OTHER, SELFPAY ==
[2023-10-18 16:59] LABS: Add Manual Diff / Slide Review NO; Basophils Absolute Auto 0 /uL (0-100); Basophils Percent Auto 0.6 % (0-2); Eosinophils Absolute Auto 100 /uL (0-450); Eosinophils Percent Auto 1.4 % (2-4); Hematocrit 38.1 % (36-46); Hemoglobin 12.7 g/dL (12.0-16.0); Lymphocytes Absolute Auto 1000 /uL (1100-4500); Lymphocytes Percent Auto 21.3 % (25-40); Mean Corpuscular HGB Conc 33.2 % (30-36); Mean Corpuscular Hemoglobin 30.8 PG (26-34); Mean Corpuscular Volume 92.6 fL (80-100); Monocytes Absolute Auto 400 /uL (0-900); Monocytes Percent Auto 9.5 % (3-14); Neutrophils Absolute Auto 3100 /uL (1500-7000); Neutrophils Percent Auto 67.2 % (50-75); Platelet Count 284 X10^3/uL (150-400); Red Blood Cell Count 4.12 X10^6/uL (4.0-5.2); White Blood Cell Count 4.6 X10^3/uL (4.5-11.0)
[2023-10-18 17:40] LABS: Erythrocyte Sedimentation Rate 8 MM/HR (0-20)
[2023-10-18 18:08] LABS: HEMOLYSIS < 15 (0-50); Iron 56 ug/dL (37-170)
[2023-10-18 18:11] LABS: BUN Creatinine Ratio 30.4 (6-22); Blood Urea Nitrogen 24 mg/dL (7-17); C-Reactive Protein Quant < 0.5 mg/dL (<1.0); Calcium 9.4 mg/dL (8.4-10.2); Carbon Dioxide 24 mmol/L (22-32); Chloride 103 mmol/L (98-107); Estimated Glomerular Filt Rate > 60 mL/min (>60); Glucose 101 mg/dL (80-110); HEMOLYSIS < 15 (0-50); Potassium 4.1 mmol/L (3.4-5.1); Sodium 136 mmol/L (137-145)
[2023-10-18 18:19] LABS: Percent Iron Saturation 16 % (15-50); Total Iron Binding Capacity 344 ug/dL (265-497); Transferrin 293 mg/dL (206-381)
[2023-10-18 19:41] LABS: Free T4, Direct Thyroxine 0.72 ng/dL (0.78-2.19)
== END ==
PROVIDERS: PCP Nurse Practitioner; Referring Provider Nurse Practitioner Family; Visit Provider Nurse Practitioner Family
DX: R50.9 Fever, unspecified (principal)
CPT/HCPCS: 36415; 80048; 83540; 83550; 84439; 84443; 85025; 85651; 86140

== ENCOUNTER 2023-11-18 15:43 | Emergency (ER) | payer MEDICARE, OTHER, SELFPAY ==
--- NOTE | 2023-11-18 15:54 | ED.GENADULT ---
HPI - General Adult General Chief complaint: Weakness Stated complaint: Fever, Hallucinations, High BP Time Seen by Provider: 11/18/23 15:54 History of Present Illness HPI narrative: 68-year-old woman with history of dementia, hypothyroidism presumed Parkinson's disease with consultation with Parkinson's specialist in January of this year with progressive confusion, tremor and evening agitation. Has been notes that she has had temperatures in the 99-100 range every evening. Last night she had significantly more agitation was unable to calm enough to sleep. She was seen and evaluated by Dr. Wang urology at the end of September who confirmed that she does not have a urinary tract infection. There was no cough, nausea, vomiting, diarrhea, abdominal pain. is becoming more and more concerned as nobody is able to get any sleep is her evening agitation increases. Her cognitive decline has been rather rapid and this point she is not able to cooperate with history or exam or answer any direct questions. She is reportedly scheduled for an outpatient MRI tomorrow Related Data Previous Rx's Medication Instructions Recorded donepezil 10 mg tablet 10 mg PO BEDTIME #90 tabs 06/04/23 memantine 5 mg tablet 5 mg PO QPM #90 tabs 06/04/23 fluoxetine 40 mg capsule 40 mg PO DAILY #90 caps 08/08/23 tamsulosin 0.4 mg capsule 0.4 mg PO BEDTIME #90 caps 08/21/23 acetaminophen 500 mg tablet 1,000 mg (2 x 500 mg) PO TID pain 09/16/23 (Tylenol Extra Strength) #90 tabs melatonin 3 mg capsule 3 mg PO BEDTIME PRN sleep #90 caps 09/16/23 Disabled Parking Permit #1 ea 10/18/23 trazodone 50 mg tablet See Rx Instructions .Route 10/23/23 .COMPLEX PRN insomnia #90 tabs levothyroxine 112 mcg tablet 112 mcg PO DAILY #60 tabs 10/24/23 Shower Grab Bars #1 ea 11/14/23 olanzapine 2.5 mg tablet 2.5 - 5 mg (1 - 2 x 2.5 mg) PO 11/18/23 BEDTIME #60 tabs Allergies Allergy/AdvReac Type Severity Reaction Status Date / Time bartlett Allergy Redness of Verified 10/18/23 15:31 Skin Review of Systems Review of Systems Narrative: Pertinent positive and negative findings as per HPI Patient History Medical History (Updated 11/18/23 @ 17:37 by Nickie Garcia MD) Microscopic hematuria Right kidney stone Urinary frequency Parkinson disease Kidney stone Coarse tremors Dementia Microalbuminuria Hypertension (Unknown) Endometriosis (Unknown) Colon polyps (Unknown) Hyperlipemia (Unknown) Hypothyroidism (Unknown) Polyp of colon Surgical History (Updated 09/26/23 @ 11:49 by Jerri Goodson, RN) History of colon surgery History of thyroid surgery (Unknown) Status post hysterectomy Family History (Updated 09/26/23 @ 11:50 by Jerri Goodson, RN) Father High cholesterol Hypertension Anomaly of ear with impairment of hearing Sister Age: 60 Hyperlipidemia Anxiety Mother Cancer Social History (Updated 09/26/23 @ 11:51 by Jerri Goodson, RN) marital status: household members: spouse Smoking Status: Never smoker second hand exposure: No alcohol intake: former substance use type: does not use caffeine: Yes Type(s) of exercise: none Smoking Status: Never smoker alcohol intake frequency: a few times a month Substance Use Type: does not use Exam Initial Vital Signs Initial Vital Signs: Vital Signs Temperature 98.2 F 11/18/23 16:08 Pulse Rate 107 H 11/18/23 16:08 Respiratory Rate 18 11/18/23 16:08 Blood Pressure 186/86 H 11/18/23 16:08 Pulse Oximetry 98 11/18/23 16:08 Oxygen Delivery Method Room Air 11/18/23 16:08 General: Frail-appearing woman in a wheelchair, globally weak, very flat affect with agitated appearing stair HEENT: Dry mucous membranes, normal sclera with reactive pupils, Respiratory: Lungs are clear to auscultation, no wheezing no rales no rhonchi. Full and symmetrical air movement Cardiac: Regular rate and rhythm no murmurs no bruits Abdomen: Soft, nontender, good bowel tones, no flank pain Skin: Warm and dry, no rashes Neurologic: Cogwheeling, 2+ bilateral lower extremity reflexes, tremor pill roll type upper extremities with continuous tremor in the thighs Extremities: No trauma, 2+ nonpitting edema Psych: Cooperative, nonverbal, half the time will follow events with her eyes and half the time is not aware of events. Does not appear to be in any acute pain Course Orders Ordered: ED Orders 11/18/23 15:57 Urine Culture Stat 11/18/23 15:58 Urinalysis and Microscopic Stat 11/18/23 16:08 Complete Blood Count AUTO DIFF Stat Comprehensive Metabolic Panel Stat 11/18/23 16:16 MR head/brain wo/w con Stat 11/18/23 16:44 Consult to [facility] - [employer] Installer Stat Discontinued Medications Lorazepam (Lorazepam 2 Mg/Ml Inj) 0.5 mg IV NOW ONE Stop: 11/18/23 16:19 Last Admin: 11/18/23 16:24 Dose: 0.5 mg Documented By: Vital Signs Vital signs: Vital Signs - 8 hr 11/18/23 16:08 11/18/23 16:30 11/18/23 16:30 Temperature 98.2 F Pulse Rate 107 H 94 H Respiratory Rate 18 Blood Pressure 186/86 H 153/72 H Pulse Oximetry 98 95 Oxygen Delivery Method Room Air Medical Decision Making Lab Data 11/18/23 16:08 11/18/23 16:08 Labs: Lab Results 11/18/23 Range/Units 16:08 WBC 5.7 (4.5-11.0) X10^3/uL RBC 4.25 (4.0-5.2) X10^6/uL Hgb 13.1 (12.0-16.0) g/dL Hct 39.4 (36-46) % MCV 92.6 (80-100) fL MCH 30.8 (26-34) PG MCHC 33.2 (30-36) % RDW 13.9 (11.6-14.8) % Plt Count 309 (150-400) X10^3/uL Neut % (Auto) 74.2 (50-75) % Lymph % (Auto) 16.4 L (25-40) % Holt % (Auto) 8.4 (3-14) % Eos % (Auto) 0.3 L (2-4) % Baso % (Auto) 0.7 (0-2) % Neut # (Auto) 4300 (3225-6349) /uL Lymph # (Auto) 900 L (1618-2499) /uL Holt # (Auto) 500 (0-900) /uL Eos # (Auto) 0 (0-450) /uL Baso # (Auto) 0 (0-100) /uL Sodium 136 L (137-145) mmol/L Potassium 4.1 (3.4-5.1) mmol/L Chloride 103 (98-107) mmol/L Carbon Dioxide 25 (22-32) mmol/L BUN 16 (7-17) mg/dL Creatinine 0.71 (0.52-1.04) mg/dL Estimated GFR > 60 (>60) mL/min BUN/Creatinine Ratio 22.5 H (6-22) Glucose 132 H (80-110) mg/dL Calcium 9.3 (8.4-10.2) mg/dL Total Bilirubin 0.7 (0.2-1.3) mg/dL AST 44 H (14-36) IU/L ALT 20 (<35) IU/L Alkaline Phosphatase 84 (38-126) U/L Total Protein 7.7 (6.3-8.2) g/dL Albumin 4.7 (3.5-5.0) g/dL Globulin 3.0 (1.7-4.1) g/dL Albumin/Globulin Ratio 1.6 (1.0-2.8) MDM Narrative Medical decision making narrative: CC: Increased agitation, weakness, tremor, sundowning and confusion Complicating co-morbidities: Presumed Parkinson's diagnosis, possible Lewy body dementia, increase nighttime agitation, elevated temperatures without overt fever or signs of infection in the evenings Data collected from: Patient is not able to contribute to history, and her sister explain findings and concerns Social determinants of health that may influence the patients condition: Progressive dementia Medical records reviewed: Neurology note from August 28, 2023 is reviewed. Unclear if she has dementia with Lewy bodies versus Parkinson's disease clearly getting progressively worse. Referred to Dr. Adkins movement specialist clinic at the [facility]. Recommendation was to continue benazepril 10 mg, amantadine 5 mg and trazodone 25 mg for sleep. Differential considered: Progressive dementia, infection complicating progressive dementia Exam documented above, pertinent findings include: Flat affect, cogwheeling in the upper extremities, tremor pill roll type in the upper extremities with tremor in the thighs. No evidence of infection, heart and lungs are benign Lab Test results independently reviewed as above. Pertinent findings: CBC is unremarkable no evidence of infection Urine has been cultured, there was not enough collected to do a urine dip however she was recently evaluated by Urology with similar symptoms with no TI noted Chemistries are unremarkable, certainly no explanation for acute worsening symptoms Thyroid studies done on October 17 showed TSH 33 with a T4 does barely out of normal limits at 0.72. Her levothyroxine was adjusted and is scheduled to be repeated in 3 months as appropriate Imaging studies independently reviewed: MRI of the brain with and without contrast is done in the emergency department and will be reviewed and follow up with her primary care provider in the morning Consultations: Discussed with nanotechnologist, she is scheduled for a brain without tomorrow. We will change that to brain with and without with sedation so we can actually obtain this study and we will be ordered for 6:00 p.m. this evening Treatments: .5 mg of Ativan is given with minimal change to her agitation/tremor. It had minimal effect. We will give her a full mg prior to her MRI Discussion: 68-year-old woman likely with Lewy body dementia given her age and fairly rapid decline in cognitive function likely concurrent Parkinson's disease as well. Her has a number of very appropriate questions. He is wondering if medication should be continued he feels that the benazepril and the amantadine have not been effective in his wondering if the side effects may be worse than the benefits. Similar questions regarding the tamsulosin. We had a very judy discussion regarding her significant progression of symptoms within the last week with no concurrent physiologic findings that may be reversible. He is given additional resources on dementia care facilities. Apparently he has spoken with the [facility] secondary social studies teacher almost a month ago and they at that point had talked about obtaining some home health services it has not clear that that has happened. That maybe a good bridging option for the next bit of time but I do believe that dementia care is going to be appropriate so that her is able to get some sleep. In terms of management of the worsening evening agitation, at this point we have adequately ruled out infection that might be treated, she has not showing significant signs of pain. We will suggest trying 2.5 mg of olanzapine to see if this helps with the agitation and paranoia in the evening. If it seems to be slightly effective could increase to 5 mg at night. If this is ineffective quetiapine starting at 25 mg and increasing to 75 mg maybe effective instead. Would recommend continuing trazodone at bedtime to help with sleep Primary care office has called in offer to see her at 11:45 a.m. tomorrow. We will ask them to keep that appointment, we will discharge after the MRI is done and ask primary care provider to follow up with results Findings recommendations and extensive plan as outlined and reviewed with her Discharge Plan Departure Patient Disposition: Home Clinical Impression: Dementia Qualifiers: Dementia type: Lewy body dementia Dementia severity: severe Dementia behavioral or psychological symptom: with psychotic disturbance Qualified Code(s): G31.83 - Neurocognitive disorder with Lewy bodies Parkinson's disease Qualifiers: Dyskinesia presence: with dyskinesia Fluctuating manifestations: with fluctuating manifestations Qualified Code(s): G20.B2 - Parkinson's disease with dyskinesia, with fluctuations Instructions: Lewy Body Disease Activity Restrictions/Additional Instructions: Thank you for coming in today. I am sorry that all review are going through this experience. Dealing with dementia in a loved one is very difficult particularly, when she is young and symptoms seem to be progressing quickly Our secondary social studies teacher will contact the state to see if were able to help increase the number of caregiver hours available to help at home No one wants to have their loved one go to a care facility, however as dementia progresses and needs increase sometimes this becomes the only viable option. In terms of medications I am going to make a number of recommendations: We talked about stopping medications that likely are not effective. At this point in her disease, I would recommend stopping the donepezil, amantadine and tamsulosin. I believe the fluoxetine is still going to be helpful with some of the behavioral control. Thyroid is still going to be important Regarding the parkinsonian medication if this seems to be helping with the tremor and the muscle spasm, it is worth continuing Please do continue the melatonin and the trazodone at night I am going to give you a prescription for a medication called olanzapine. I am going to have you try 2.5 mg at dinnertime to help with the increased agitation and paranoia that are happening at bedtime. If this seems to be effective but not quite enough you can increase this to 5 mg at bedtime If you find that that is not effective please talk to your primary provider, if the olanzapine is not helpful the next choice might be a medicine called quetiapine starting at 25 mg and increasing up to 75 mg. Behavioral changes such as a stable environment, scheduled dinner, routines at bedtime are going to be more helpful than medications in helping with overall agitation and sleep Please keep the appointment offered tomorrow morning with your primary care physician, they can look up the results of the MRI and discuss them at that time If you find that you are getting worse or develop any new symptoms, please feel free to return to the emergency department for further evaluation. Prescriptions: New olanzapine 2.5 mg tablet 2.5 - 5 mg PO BEDTIME Qty: 60 0RF Rx Instructions: please give at dinner time No Action trazodone 50 mg tablet See Rx Instructions .ROUTE .COMPLEX PRN (Reason: insomnia) Qty: 90 3RF Rx Instructions: Take 1-2 tabs at bedtime daily for sleep as needed. PRN; levothyroxine 112 mcg tablet 112 mcg PO DAILY Qty: 60 0RF (DME) Shower Grab Bars See Rx Instructions .Route .MEDSUPPLY Qty: 1 0RF Rx Instructions: To be used for shower safety and assistance with transferring in and out of bathtub melatonin 3 mg capsule 3 mg PO BEDTIME PRN (Reason: sleep) Qty: 90 0RF Rx Instructions: Take at dinnertime to help pt sleep acetaminophen [Tylenol Extra Strength] 500 mg tablet 1,000 mg PO TID Qty: 90 0RF Rx Instructions: Take 2 tabs at bedtime to help with sleeplessness, may take up to 3x/day fluoxetine 40 mg capsule 40 mg PO DAILY Qty: 90 3RF tamsulosin 0.4 mg capsule 0.4 mg PO BEDTIME Qty: 90 0RF (DME) Disabled Parking Permit See Rx Instructions .ROUTE .MEDSUPPLY Qty: 1 0RF Rx Instructions: I find this patient to be medically disabled and qualified for Disabled Parking as indicated on the accompanying Disabled Parking Application for Individuals. donepezil 10 mg tablet 10 mg PO BEDTIME Qty: 90 3RF Rx Instructions: Take 1 tab at bedtime daily memantine 5 mg tablet 5 mg PO QPM Qty: 90 3RF Rx Instructions: Take 1 tab at bedtime daily. Referrals: Samantha Dawkins ARNP [Primary Care Provider] - Stand Alone Forms: Patient Portal/API
[2023-11-18 16:08] VITALS: BP 186/86; PULSE 107; RESP 18; TEMP 36.8; O2SAT 98; BMI 28.0
--- NOTE | 2023-11-18 16:16 | DI.MRI.S_ITS ---
PROCEDURE: MR HEAD/BRAIN WO/W CON INDICATIONS: progressive dementia, tremor and agtiation (no prior imaging TECHNIQUE: Noncontrast axial T1 spin echo, axial T2 fast spin echo, sagittal and axial FLAIR, coronal T2 fast spin echo, axial gradient echo, axial diffusion and ADC through the brain. After the administration of contrast, axial and coronal and sagittal T1 spin echo with fat saturation through the brain. COMPARISON: None. FINDINGS: Image quality: Excellent. CSF spaces: Basal cisterns are patent. No extra-axial fluid collections. Ventricles are normal in size and shape. Brain: No midline shift. No intracranial bleeds or masses. No abnormal intracranial enhancement. There is cerebral volume loss for age. There is periventricular white matter chronic small vessel ischemic change. The brainstem appears normal. Diffusion-weighted images demonstrate no acute infarct. No chronic ischemic insults. Normal intravascular flow voids are present. Several scattered areas hypointensity are present on gradient sequence predominantly in the subcortical white matter. Skull and face: Calvarial marrow is normal in signal. Orbits appear normal. Sinuses: Sinuses and mastoids appear clear. IMPRESSION: 1. No acute intracranial process. 2. Moderate atrophy and chronic microvascular ischemic changes. 3. Scattered areas of gradient sequence hypointensity. While these could represent hypertensive changes, the distribution is somewhat atypical in amyloid angiopathy should be considered. Dictated by: Zuleyka Sarmiento M.D. on 11/18/2023 at 18:35 Approved by: Zuleyka Sarmiento M.D. on 11/18/2023 at 18:37
[2023-11-18] MEDS: LORazepam 2 MG/ML INJ 0.5 MG IV (16:24)
[2023-11-18 16:26] LABS: Add Manual Diff / Slide Review NO; Basophils Absolute Auto 0 /uL (0-100); Basophils Percent Auto 0.7 % (0-2); Eosinophils Absolute Auto 0 /uL (0-450); Eosinophils Percent Auto 0.3 % (2-4); Hematocrit 39.4 % (36-46); Hemoglobin 13.1 g/dL (12.0-16.0); Lymphocytes Absolute Auto 900 /uL (1100-4500); Lymphocytes Percent Auto 16.4 % (25-40); Mean Corpuscular HGB Conc 33.2 % (30-36); Mean Corpuscular Hemoglobin 30.8 PG (26-34); Mean Corpuscular Volume 92.6 fL (80-100); Monocytes Absolute Auto 500 /uL (0-900); Monocytes Percent Auto 8.4 % (3-14); Neutrophils Absolute Auto 4300 /uL (1500-7000); Neutrophils Percent Auto 74.2 % (50-75); Platelet Count 309 X10^3/uL (150-400); Red Blood Cell Count 4.25 X10^6/uL (4.0-5.2); Red Cell Distribution Width 13.9 % (11.6-14.8); White Blood Cell Count 5.7 X10^3/uL (4.5-11.0)
[2023-11-18 16:30] VITALS: BP 153/72; PULSE 94; O2SAT 95
[2023-11-18 16:32] LABS: Alanine Aminotransferase 20 IU/L (<35); Albumin 4.7 g/dL (3.5-5.0); Albumin Globulin Ratio 1.6 (1.0-2.8); Alkaline Phosphatase 84 U/L (38-126); Aspartate Aminotransferase 44 IU/L (14-36); BUN Creatinine Ratio 22.5 (6-22); Bilirubin Total 0.7 mg/dL (0.2-1.3); Blood Urea Nitrogen 16 mg/dL (7-17); Calcium 9.3 mg/dL (8.4-10.2); Carbon Dioxide 25 mmol/L (22-32); Chloride 103 mmol/L (98-107); Estimated Glomerular Filt Rate > 60 mL/min (>60); Glucose 132 mg/dL (80-110); HEMOLYSIS 24 (0-50); Potassium 4.1 mmol/L (3.4-5.1); Sodium 136 mmol/L (137-145); Total Protein 7.7 g/dL (6.3-8.2)
[2023-11-18 17:00] VITALS: BP 141/63; PULSE 95; O2SAT 95
--- NOTE | 2023-11-18 17:27 | PC.NURSE ---
gokul placed pt education given
[2023-11-18 17:30] VITALS: BP 154/69; PULSE 106; O2SAT 94
[2023-11-18] MEDS: LORazepam 2 MG/ML INJ 1 MG IV (17:45)
--- NOTE | 2023-11-18 17:47 | CM.SWNOTE ---
Addendum entered by Barbara Helton 11/19/23 11:13: DOG BARBER receives VM from [facility] and it is reported that patient's assigned [facility] Library Assistant is Suresh Wylie (Ph. # [phone]). DOG BARBER calls Suresh and leaves VM regarding patient requesting new assessment for patient. Barbara Helton, [facility] Original Note: ED DOG BARBER Note Patient is 68 y/o female with hx of presumed Parkinson's Disease and Dementia after recent consultation. Patient presents with family due to concern for increased anxiety, frequent urination and increased weakness. Patient's PCP is Dr. Cano, with newly established appt for 11/27/23, patient was previously seeing RADHA Cota. Patient has Medicare and [employer]. Patient has Neurology referral with Dr. Adkins at [facility] with upcoming appt as well. Patient had scheduled MRI for tomorrow but ED provider was able to schedule MRI for patient through the ED this evening. DOG BARBER enters room to meet with patient, DOG BARBER speaks with patient's sister Stephie and friend/neighbor Ting in room. It is reported that patient's stepped out of room to get something to eat. It is reported that patient resides at home with spouse in [place]. It is reported that patient is dependent of spouse for assistance with ADLs and patient has presented with decreased mobility due to increase in weakness, patient has been primarily using a wheelchair at home instead of FWW. It is reported that patient was assessed by [facility] case investigator and approved for 34 caregiver hours a month. It is reported that patient's friend Ting (Ph. # [phone]) has been background checked and finger printed and in the process of getting approval to be patient's caregiver. Family and friend report that the goal is for patient to remain at home. DOG BARBER provides patient's family with senior resource guide and lists of private pay and agency caregivers. DOG BARBER discusses that patient may need more caregiver hours than the state is able to allot. DOG BARBER discusses the option of supplementing caregiver hours by paying out of pocket, patient's sister states she does not know their financial situation. DOG BARBER discusses memory care facilities as well, family is not interested at this time. It is reported that patient's sister resides in [place] and patient has another sister that resides in [place]. DOG BARBER calls [facility] and [facility] regarding patient's presentation in the ED requesting new assessment for caregiver hours given patient's change in mobility, DOG BARBER informs [facility] of patient's friend/neighbor who is in the process of being certified as patient's caregiver. DOG BARBER requests return call and call to patient's spouse and friend. DOG BARBER emails [facility] Family Caregiver Support Program regarding referral for patient's spouse. Plan: patient to go to MRI this evening, patient likely to d/c to home upon medical clearance, family to f/u with [facility] regarding caregiver services for patient, [facility] Family Caregiver Support Program to f/u with patient's spouse. Barbara Helton, [employer]
[2023-11-18 17:56] LABS: Appearance Urine UA CLEAR; Bilirubin Urine UA NEGATIVE (NEGATIVE); Color Urine UA YELLOW; Glucose Urine UA NEGATIVE (Negative); Ketones Urine UA NEGATIVE (NEGATIVE); Leukocyte Esterase Urine UA NEGATIVE (NEGATIVE); Nitrite Urine UA NEGATIVE (Negative); Occult Blood Urine UA TRACE-INTACT (Negative); Protein Urine UA NEGATIVE (Negative); Specific Gravity Urine UA <=1.005 (1.000-1.035); Urobilinogen Urine UA 0.2 E.U./dL (0.2)
[2023-11-18 17:58] LABS: pH Urine UA 6.5 (4.5-8.0)
[2023-11-18 18:02] LABS: Urine Volume 10mL (spun)
[2023-11-18 18:03] LABS: Amorphous Sediment Urine 1+; Bacteria Urine Occasional (0-1); RBC Urine 1-5/HPF (0-5/HPF); Squamous Epithelial Cell Urine 0-1 /HPF (0-5/HPF); WBC Urine None Seen (0-5/HPF)
[2023-11-18 18:11] VITALS: BP 133/65; PULSE 90; O2SAT 95
[2023-11-18] MEDS: OLANZapine 2.5 MG TABLET PO (18:12)
== END 2023-11-18 18:30 | disposition home or self-care (01) ==
PROVIDERS: Emergency Provider Emergency Medicine; PCP Nurse Practitioner
DX: G20.B2 Parkinson's disease with dyskinesia, with fluctuations (principal); G31.83 Neurocognitive disorder with Lewy bodies
CPT/HCPCS: 36415; 70553; 80053; 81001; 85025; 87086; 96374; 96376; 99284; J2060

== ENCOUNTER → 2024-01-03 10:39 | Outpatient (CLI) | payer MEDICARE, OTHER, SELFPAY ==
[2024-01-03 13:19] LABS: Free T4, Direct Thyroxine 0.89 ng/dL (0.78-2.19)
== END ==
LOC: LAB 10:40
PROVIDERS: PCP Family Medicine; Referring Provider Family Medicine; Visit Provider Family Medicine
DX: E03.9 Hypothyroidism, unspecified (principal)
CPT/HCPCS: 36415; 84439; 84443

== ENCOUNTER → 2024-02-14 10:55 | Outpatient (CLI) | payer MEDICARE, OTHER, MEDICAID, SELFPAY ==
[2024-02-14 13:46] LABS: Free T4, Direct Thyroxine 1.36 ng/dL (0.78-2.19)
== END ==
PROVIDERS: PCP Family Medicine; Referring Provider Family Medicine; Visit Provider Family Medicine
DX: E03.9 Hypothyroidism, unspecified (principal)
CPT/HCPCS: 36415; 84439; 84443